=== PATIENT | male | born 1950 | race Caucasian/White ===

== ENCOUNTER 2018-09-04 18:31 | Emergency (ER) | payer MEDICARE, OTHER, SELFPAY ==
[2018-09-04 18:34] VITALS: BP 127/62; PULSE 66; RESP 20; TEMP 36.2; O2SAT 99; BMI 22.5
--- NOTE | 2018-09-04 18:39 | DI.US.S_ITS ---
PROCEDURE: US PERIPH VENOUS LOW EXTREM LT INDICATIONS: lower extremity pain TECHNIQUE: Real-time imaging, as well as color and pulse Doppler interrogation, were performed of the lower extremity deep veins from the inguinal ligament to the popliteal fossa. COMPARISON: None. FINDINGS: There are filling defects within the left popliteal vein which appear nonocclusive. No thrombus demonstrated within the superficial femoral or common femoral veins. IMPRESSION: 1. Nonocclusive deep venous thrombosis within the left popliteal vein. Findings discussed with Dr. Agarwal on 09/04/18 at 8:45 PM. Dictated by: Mark Reddy M.D. on 09/04/2018 at 20:44 Approved by: Mark Reddy M.D. on 09/04/2018 at 20:47
--- NOTE | 2018-09-04 21:23 | ED_ITS ---
HPI - Extremity Problem General Chief complaint: Extremity Problem,Nontraumatic Stated complaint: L leg pain Time Seen by Provider: 09/04/18 18:56 Source: patient and family Mode of arrival: ambulatory Limitations: no limitations History of Present Illness HPI Narrative: 68M smoker with history of stage IV lung cancer, being treated with chemotherapy and managed at the [facility] [facility] Mcgrady presents at the request of his primary care provider for evaluation of left lower extremity swelling, redness and warmth. He denies any injury. He states that he started having some difficulty about 10 days ago when in [place] and had an ultrasound which was interpreted by vascular surgery to demonstrate old clot but nothing to suggest a new DVT. The patient has had worsening symptoms for the past few days and was seen by his primary, given an intramuscular injection of Rocephin and sent for evaluation. He denies any fever, chills nor nausea or vomiting. He has no runny nose, sore throat or chest pain. He denies any change in his breathing capabilities. MD Complaint: extremity pain and extremity swelling Onset (ago): day(s) Pain Consistency: constant Location: left Quality: aching Radiation: none Relieving factors: nothing Exacerbating factors: walking Associated symptoms: denies other symptoms Context: recent illness Related Data Previous Rx's Medication Instructions Recorded enoxaparin [Lovenox] 69 mg SUBCUT Q12H 21 Days #28.98 ml 09/04/18 Review of Systems Constitutional Denies chills, Denies fever(s), Denies lethargy and Denies weakness Eyes Denies change in vision, Denies eye discharge, Denies irritation and Denies loss of vision ENT Ears, Nose, Mouth, and Throat: Denies change in voice, Denies neck pain and Denies sore throat Cardiovascular Denies chest pain, Denies irregular heart rhythm, Denies lightheadedness, Denies palpitations, Denies dyspnea, Denies dyspnea on exertion and Denies orthopnea Respiratory Denies cough, Denies dyspnea, Denies dyspnea on exertion and Denies wheezing Gastrointestinal Gastrointestinal: Denies abdominal pain, Denies change in bowel habits, Denies diarrhea, Denies nausea and Denies vomiting Genitourinary Denies hematuria, Denies flank pain, Denies urinary incontinence and Denies urinary urgency Musculoskeletal Denies neck pain Integumentary/Breasts Denies pruritus, Reports erythema, Denies rash, Reports skin pain, Reports skin swelling and Denies wounds Neurologic Denies confusion, Denies loss of vision and Denies weakness Psychiatric Denies anxiety, Denies confusion, Denies depression, Denies homicidal ideation and Denies suicidal ideation Endocrine Denies palpitations Hematologic/Lymphatic Denies easy bruising Allergic/Immunologic Denies wheezing [facility] Medical History (Updated 09/05/18 @ 03:28 by Willy Agarwal DO) Lung cancer (Acute) Social History Smoking Status: Former smoker Social History Smoking Status: Former smoker Exam Narrative Exam Narrative: GEN: 68-year-old male appears older than stated age, chronically ill but in no acute distress EYES: Pupils are equal, round, and reactive to light and accommodation. Extraoccular muscles are intact bilaterally. There is no subconjunctival hemorrhage or exudate. CHEST: Decreased breath sounds bilaterally with prolonged expiratory phase Heart rate is regular rhythm, there are no murmurs, clicks, rubs, or gallops. There is no chest wall tenderness. ABD: Abdomen is soft and nontender. There is no guarding or rebound. Bowel sounds are normal in all 4 quadrants. There is no mass or organomegaly. EXT: Left lower extremity swelling, redness and warmth below the knee SKIN: Skin of left lower extremity is erythematous and warm below the knee Initial Vital Signs Initial Vital Signs: Vital Signs Temperature 97.1 F L 09/04/18 18:34 Pulse Rate 66 09/04/18 18:34 Respiratory Rate 20 09/04/18 18:34 Blood Pressure 127/62 09/04/18 18:34 Pulse Oximetry 99 09/04/18 18:34 Course Orders Ordered: ED Orders 09/04/18 18:39 US periph venous low extrem lt Stat Discontinued Medications Enoxaparin Sodium (Lovenox) 70 mg 1 mg/kg (70 mg) SUBCUT NOW ONE Stop: 09/04/18 21:33 Last Admin: 09/04/18 21:52 Dose: 70 mg Consultations Consultation #1: Upon receipt of ultrasound I contacted the on-call provider with the patient's oncology group in [place]. After discussing the case she recommended we administer Lovenox 1mg/kg in the emergency department and a prescription for 2-3 weeks for outpatient. They will follow closely as an outpatient and will help manage the patient's DVT. We discussed any need for c urrent lab work and agree there was no indication. Vital Signs - 8 hr 09/04/18 22:13 Temperature 98.5 F Pulse Rate 65 Respiratory Rate 18 Blood Pressure 111/70 Pulse Oximetry 97 MDM - Extremity (Nontraumatic) Imaging Data Venous US: Radiologist's impression: [address] [id number] Ultrasound Report Signed Patient: Des Rubi MMR#: [id number] : 8Acct:[id number] Age/Sex: 68 / MDate of Service: 09/04/18 Loc: ED Accession Number: [id number] Procedure: US periph venous low extrem lt Ordering Provider: Willy Agarwal D.O. PROCEDURE: US PERIPH VENOUS LOW EXTREM LT INDICATIONS: lower extremity pain TECHNIQUE: Real-time imaging, as well as color and pulse Doppler interrogation, were performed of the lower extremity deep veins from the inguinal ligament to the popliteal fossa. COMPARISON: None. FINDINGS: There are filling defects within the left popliteal vein which appear nonocclusive. No thrombus demonstrated within the superficial femoral or common femoral veins. IMPRESSION: 1. Nonocclusive deep venous thrombosis within the left popliteal vein. Findings discussed with Dr. Agarwal on 09/04/18 at 8:45 PM. Dictated by: Mark Reddy M.D. on 09/04/2018 at 20:44 Approved by: Mark Reddy M.D. on 09/04/2018 at 20:47 Discharge Plan Departure Patient Disposition: Home Clinical Impression: Deep vein thrombosis of lower extremity Qualifiers: Affected thrombotic vein of extremity: popliteal Chronicity: acute Laterality: left Qualified Code(s): I82.432 - Acute embolism and thrombosis of left popliteal vein Discharge Date/Time: 09/04/18 22:13 Interventions: ED Discharge Assessment Last Done: 09/04/18 22:13 Instructions: DI for Deep Vein Thrombosis Activity Restrictions/Additional Instructions: *You have been diagnosed with [ acute DVT of the left lower extremity] *What to do: *Take medications as directed *Follow up with your primary care provider in 2-3 days, call for an appointment. Let them know you were seen in the Emergency Department and that we ask that you be seen in follow up *Return to ER if you should have any new, worsening or concerning symptoms Prescriptions: New enoxaparin [Lovenox] 80 mg/0.8 mL syringe 69 mg SUBCUT Q12H 21 Days Qty: 28.98 RF: 0 Referrals: Inocencio Gutierrez MD [Primary Care Provider] -
[2018-09-04] MEDS: ENOXAPARIN 80 MG/0.8 ML SYRINGE 70 MG SUBCUT (21:52)
[2018-09-04 22:13] VITALS: BP 111/70; PULSE 65; RESP 18; TEMP 36.9; O2SAT 97
== END 2018-09-04 22:13 | disposition home or self-care (01) ==
PROVIDERS: Emergency Provider Emergency Medicine; PCP Family Medicine
DX: I82.432 Acute embolism and thrombosis of left popliteal vein (principal)
CPT/HCPCS: 93971; 96372; 99282; 99283; J1650

== ENCOUNTER → 2018-10-22 08:45 | Outpatient (CLI) | payer MEDICARE, OTHER, SELFPAY ==
[2018-10-22 10:01] LABS: Add Manual Diff / Slide Review NO; Basophils Absolute Auto 0 /uL (0-100); Basophils Percent Auto 0.4 % (0-2); Eosinophils Absolute Auto 100 /uL (0-450); Eosinophils Percent Auto 1.9 % (2-4); Hematocrit 28.6 % (41-53); Hemoglobin 9.5 g/dL (13.5-17.5); Lymphocytes Absolute Auto 600 /uL (1100-4500); Mean Corpuscular HGB Conc 33.2 % (30-36); Mean Corpuscular Hemoglobin 29.9 PG (26-34); Monocytes Absolute Auto 400 /uL (0-900); Monocytes Percent Auto 9.9 % (3-14); Neutrophils Absolute Auto 3200 /uL (1500-7000); Neutrophils Percent Auto 73.8 % (50-75); Platelet Count 169 X10^3/uL (150-400); Red Blood Cell Count 3.18 X10^6/uL (4.5-5.9); Red Cell Distribution Width 21.2 % (11.6-14.8); White Blood Cell Count 4.3 X10^3/uL (4.5-11.0)
[2018-10-22 10:24] LABS: Anisocytosis 2+
[2018-10-22 10:43] LABS: BUN Creatinine Ratio 21.4 (6-22); Blood Urea Nitrogen 15 mg/dL (9-20); Calcium 9.6 mg/dL (8.4-10.2); Carbon Dioxide 29 mmol/L (22-32); Chloride 99 mmol/L (98-107); Estimated Glomerular Filt Rate > 60.0 mL/min (>60); Glucose 132 mg/dL (80-110); HEMOLYSIS < 15 (0-50); Potassium 4.5 mmol/L (3.4-5.1); Sodium 138 mmol/L (137-145)
== END ==
PROVIDERS: PCP Family Medicine; Visit Provider Nurse Practitioner
DX: C39.9 Malignant neoplasm of lower respiratory tract, part unspecified (principal)
CPT/HCPCS: 36415; 80048; 85025